=== PATIENT | male | born 1980 | race Caucasian/White ===

== ENCOUNTER → 2020-12-16 | Outpatient (CLI) | payer BC ==
--- NOTE | 2020-12-16 16:01 | RAD ---
XR ABDOMEN COMP ACUTE History: Left-sided pain. Comparison: None. Technique: Frontal chest with upright and supine radiographs. Findings: Chest: Clear lungs. Normal cardiomediastinal silhouette. Bowel gas pattern: Normal. Free air: None. Abnormal calcifications: Dense calcification in the right upper quadrant likely represents a lung bas e granuloma. Bones: Normal. Other: Surgical clips from cholecystectomy. Retention coils throughout the pelvis consistent with her di repair with mesh. Impression: 1. No acute abdominopelvic findings. 2. No acute cardiopulmonary findings. Electronically signed by: Bulmaro Bhakta MD (12/16/2020 3:59 PM) [id number]
== END ==
LOC: RAD 15:39
PROVIDERS: ATTEND Family Medicine
DX: R14.0 Abdominal distension (gaseous) (principal); R10.33 Periumbilical pain
CPT/HCPCS: 74022